=== PATIENT | male | born 1990 | race Caucasian/White ===

== ENCOUNTER 2018-12-25 12:09 | Emergency (ER) | payer SELFPAY ==
[2018-12-25 12:15] VITALS: TEMP 97.3
[2018-12-25 13:41] LABS: SYNOVIAL FL. MONONUCLEAR 87.6 % (0-75); SYNOVIAL FLUID RBC 10000 /mm3 (0-0); SYNOVIAL FLUID WBC 463 /mm3 (200-600)
[2018-12-25 13:45] LABS: SYNOVIAL FLUID APPEARANCE CLOUDY; SYNOVIAL FLUID COLOR AMBER
[2018-12-25 14:39] VITALS: BP 129/80; PULSE 74
== END 2018-12-25 14:45 | disposition home or self-care (01) ==
LOC: COL.ER 12:09
PROVIDERS: Emergency Medicine
DX: M23.92 Unspecified internal derangement of left knee (principal); X58.XXXA Exposure to other specified factors, initial encounter